=== PATIENT | female | born 1970 | race Caucasian/White ===

== ENCOUNTER 2020-09-21 06:18 | Day surgery (SDC) | payer OTHER ==
[2020-09-20 12:09] LABS: COVID AG,FIA SOURCE NASOPHARYNGEAL
[~2020-09-21] VITALS: Ht 154.9 cm; Wt 159.1 kg
[2020-09-21] MEDS ORDERED: SODIUM CHLORIDE 0.9% 1,000 ML IV ONE (07:00)
[2020-09-21] MEDS ORDERED: SODIUM CHLORIDE 0.9% 1,000 ML ONE (07:15)
[2020-09-21] MEDS ORDERED: FentaNYL CITRATE PF 100 MCG/2 ML VIAL ONE (07:42)
[2020-09-21] MEDS ORDERED: MIDAZOLAM HCL 2 MG/2 ML VIAL ONE (07:42)
[2020-09-21] MEDS ORDERED: MethylPREDNISolone SOD SUCC 125 MG/2 ML VIAL ONE (09:00)
[2020-09-21] MEDS ORDERED: MethylPREDNISolone SOD SUCC 125 MG/2 ML VIAL IVP ONE ×2 (09:00)
[2020-09-21] MEDS ORDERED: PHYTONADIONE 10 MG/1 ML AMP SQ ONE (09:00)
[2020-09-21] MEDS ORDERED: DILT60TA4 PO (09:33)
[2020-09-21] MEDS ORDERED: MONT-35 PO (09:33)
[2020-09-21] MEDS ORDERED: RIVA20TA PO (09:33)
[2020-09-21] MEDS ORDERED: PANT-31 PO (09:33)
[2020-09-21] MEDS ORDERED: LEVO25TA9 PO (09:33)
[2020-09-21] MEDS ORDERED: LOSA50TA37 PO (09:33)
[2020-09-21] MEDS ORDERED: CYAN100056 SQ (09:33)
[2020-09-21] MEDS ORDERED: CARB100 PO (09:33)
[2020-09-21] MEDS ORDERED: FURO40 PO (09:33)
[2020-09-21] MEDS ORDERED: DOCU-350 PO (09:33)
[2020-09-21] MEDS ORDERED: FERR-89 PO (09:33)
[2020-09-21] MEDS ORDERED: METO25XL PO (09:33)
[2020-09-21] MEDS ORDERED: OXYGEN THERAPY IH SCH ×2 (20:00)
== END 2020-09-21 11:21 | disposition home or self-care (01) ==
LOC: SURGERY 06:18
PROVIDERS: ATTEND Internal Medicine Critical Care Medicine
DX: R05 Cough (principal); J38.4 Edema of larynx; G40.909 Epilepsy, unspecified, not intractable, without status epilepticus; K21.9 Gastro-esophageal reflux disease without esophagitis; I48.91 Unspecified atrial fibrillation; B37.0 Candidal stomatitis; J44.9 Chronic obstructive pulmonary disease, unspecified; Z79.899 Other long term (current) drug therapy; Z98.890 Other specified postprocedural states
CPT/HCPCS: 31623; 31624; 71045; 87015; 87070; 87101; 87206; 87220; 87426; 88108; 88184; 88185; 88312; 93005; C9803; J2250; J2930; J3010; J3430; J7030